=== PATIENT | male | born 1980 | race Two or more races ===

== ENCOUNTER 2018-02-03 22:22 | Emergency (ER) | payer MEDICAID ==
[2018-02-04] MEDS: DIPHENHYDRAMINE 2.5 MG/ML 5ML CUP PO (03:48)
[2018-02-04] MEDS: IBUPROFEN 600 MG TAB PO (03:48)
[2018-02-04] MEDS: LIDOCAINE 2% VISC 15 ML CUP PO (03:48)
== END 2018-02-04 04:09 | disposition home or self-care (01) ==
LOC: FTE 22:22
DX: S00.31XA Abrasion of nose, initial encounter (principal); F41.9 Anxiety disorder, unspecified; W17.89XA Other fall from one level to another, initial encounter; Y92.9 Unspecified place or not applicable
CPT/HCPCS: 99283; Z7502